=== PATIENT | female | born 2000 | race Caucasian/White ===

== ENCOUNTER 2021-11-26 17:43 | Emergency (ER) | payer BC, SELFPAY ==
--- NOTE | ~2021-11-26 | CT_ITS ---
EXAMINATION: CT abdomen pelvis wo con DATE: 11/26/2021 21:29 INDICATION: left flank pain TECHNIQUE: Computed tomography (CT) of the abdomen and pelvis was performed without intravenous contr ast. Automated exposure control and iterative reconstruction technique were employed. The dose-length product was 269.91 mGy-cm. COMPARISON: None. FINDINGS: Lower thorax: Unremarkable Liver: Normal. Biliary/Gallbladder: Gallbladder is normal. No bile duct dilation. Pancreas: No mass or duct dilation. Spleen: Normal. Adrenals:No mass. Kidneys: Left perinephric stranding and mild hydronephrosis. GI tract: No small or large bowel dilation. Normal appendix. Mesentery/Peritoneum: No ascites, mass, or free air. Retroperitoneum: No mass. Pelvis: The distal ureters could not be traced definitively due to the paucity of intra-abdominal fat and obscuration by adjacent bowel and pelvic vessels. Numerous pelvic calcifications are present in the potential pathway of the distal left ureter. Pelvic organs otherwise normal. Soft Tissues: Soft tissues and body wall unremarkable. Bones: No acute osseous finding. IMPRESSION: Distal left ureter not visualized, several possible distal ureteral calcifications are present in the pelvis. Mild left hydronephrosis and renal inflammatory change may represent obstructive uropathy, n oting that pyelonephritis could appear similar. CT urography would be necessary if further imaging de lineation as clinically necessary. Reviewed, dictated and finalized at location [facility]. IMPRESSION: Distal left ureter not visualized, several possible distal ureteral calcificati ons are present in the pelvis. Mild left hydronephrosis and renal inflammatory change may represent obstructive uropathy, noting that pyelonephritis could yu ear similar. CT urography would be necessary if further imaging delineation as clinically necessary.
[2021-11-26 18:14] VITALS: BP 113/91; PULSE 86; RESP 16; TEMP 36.2; O2SAT 100
[2021-11-26 18:53] LABS: Appearance Urine Slightly Cloudy (Clear); Basophils Absolute Auto 0.1 K/mm3 (0.0-0.1); Basophils Percent Auto 0.8 % (0.2-1.2); Bilirubin Urine Negative (Negative); Blood Urine 3+ (Negative); Color Urine Yellow (Yellow); Eosinophils Percent Auto 0.4 % (0-4.4); Glucose Urine UA Negative (Negative); Hematocrit 37.8 % (37.0-47.0); Hemoglobin 12.4 g/dL (12.0-15.0); Immature Granulocyte Absolute 0.04 K/mm3 (0.00-0.031); Immature Granulocyte Percent A 0.4 % (0-0.5); Ketones Urine 2+ mg/dL (Negative); Leukocyte Esterase Ur Negative LEU/UL (Negative); Lymphocytes Absolute Auto 1.45 K/mm3 (0.9-3.2); Lymphocytes Percent Auto 13.7 % (18.3-44.2); Mean Corpuscular HGB Conc 32.8 g/dl (32-36); Mean Corpuscular Hemoglobin 29.2 pg (26-34); Mean Corpuscular Volume 89.2 fl (80-100); Mean Platelet Volume 11.3 fl (7.4-10.4); Monocytes Absolute Auto 0.6 K/mm3 (0.1-0.6); Neutrophils Absolute Auto 8.3 K/mm3 (1.3-6.7); Neutrophils Percent Auto 78.7 % (45.5-73.1); Nitrate Urine Negative (Negative); Platelet Count Result 211 k/mm3 (150-375); Protein Urine 1+ mg/dL (Negative); Red Blood Count 4.24 M/mm3 (4.2-5.4); Red Cell Distribution Width 12.8 % (11.5-14.5); Specific Grav Ur 1.025 (1.001-1.035); Urobilinogen Urine 0.2 mg/dL (<2.0); White Blood Count 10.6 K/mm3 (4.5-10.0); pH Urine 8.5 (5.0-9.0)
[2021-11-26 19:05] LABS: Alanine Aminotransferase 18 U/L (6-35); Albumin Level 5.1 g/dL (3.5-5.1); Alkaline Phosphatase 52 U/L (38-126); Anion Gap 5 mmol/L (8-16); Aspartate Amino Transferase 27 U/L (14-36); Bilirubin,Total 0.4 mg/dL (0.2-1.3); Blood Urea Nitrogen 14 mg/dL (7-17); Calcium 9.4 mg/dL (8.4-10.2); Carbon Dioxide 25 mmol/L (22-30); Chloride 105 mmol/L (98-107); Estimated CRCL calculation 60 ml/min; Estimated Glomerular Filt Rate 52; Glucose 120 mg/dL (65-110); Lipase 125 U/L (23-300); Mucus Urine Few /lpf; Potassium 3.6 mmol/L (3.4-5.0); RBC Urine >75 /hpf (0-2); Sodium 135 mmol/L (137-145); Squamous Epithelial Cell Urine Occasional /hpf (Few)
[2021-11-26 19:10] LABS: Add Urine Microscopic? YES
--- NOTE | 2021-11-26 19:32 | ED.GENADULT ---
HPI - General Adult General Chief complaint: Abdominal Pain Stated complaint: left flank abdominal pain with n/v Time Seen by Provider: 11/26/21 19:17 History of Present Illness HPI narrative: Patient is a 21-year-old female who presents to the emergency department with chief complaint of left flank pain. The patient reports that around 430 she suddenly started having pain that was sharp and in the left flank area. Patient states it radiates to the front of her abdomen patient reports he is unable to get comfortable in any position reports has had multiple episodes of nausea and vomiting. Patient reports that she had no fever no chills reports that she had no trauma. Patient denies significant past medical history Related Data Allergies Allergy/AdvReac Type Severity Reaction Status Date / Time No Known Allergies Allergy Verified 11/26/21 17:44 Review of Systems Review of Systems: A 10 system review of systems was completed on the patient and is negative except for what is stated in the HPI. Nursing and ancillary documentation was reviewed. Exam Narrative: GENERAL: Well-appearing, well-nourished, and in moderate pain distress. HEAD: Normocephalic, atraumatic. EYES: PERRLA and EOMI. ENT: Nares clear, no rhinorrhea or epistaxis. Mucous membranes moist. NECK: Supple. CHEST: Clear to auscultation. No respiratory distress. HEART: Regular rate and rhythm. No murmur heard. Normal peripheral pulses. ABDOMEN: Soft, nontender, nondistended, normal active bowel sounds. EXTREMITIES: Normal range of motion. No edema. SKIN: Warm, dry, no rash. NEURO: No focal deficits. Alert and oriented x3. PSYCH: Normal mood and affect. Course Vital Signs Vital signs: Vital Signs Temperature 36.2 C L 11/26/21 18:14 Pulse Rate 86 11/26/21 18:14 Respiratory Rate 16 11/26/21 18:14 Blood Pressure 113/91 H 11/26/21 18:14 Pulse Oximetry 100 11/26/21 18:14 Oxygen Delivery Room Air 11/26/21 18:14 Temperature 36.2 C L 11/26/21 18:14 Pulse Rate 86 11/26/21 18:14 Respiratory Rate 16 11/26/21 18:14 Blood Pressure 113/91 H 11/26/21 18:14 Pulse Oximetry 100 11/26/21 18:14 Oxygen Delivery Room Air 11/26/21 18:14 Medical Decision Making Vital Signs Vital Signs: Vital Signs Temperature 36.2 C L 11/26/21 18:14 Pulse Rate 86 11/26/21 18:14 Respiratory Rate 16 11/26/21 18:14 Blood Pressure 113/91 H 11/26/21 18:14 Pulse Oximetry 100 11/26/21 18:14 Oxygen Delivery Room Air 11/26/21 18:14 Temperature 36.2 C L 11/26/21 18:14 Pulse Rate 86 11/26/21 18:14 Respiratory Rate 16 11/26/21 18:14 Blood Pressure 113/91 H 11/26/21 18:14 Pulse Oximetry 100 11/26/21 18:14 Oxygen Delivery Room Air 11/26/21 18:14 Lab Data Result diagrams: 11/26/21 18:43 11/26/21 18:43 Labs: Lab Results 11/26/21 11/26/21 11/26/21 Range/Units 18:40 18:43 18:43 WBC 10.6 H (4.5-10.0) K/mm3 RBC 4.24 (4.2-5.4) M/mm3 Hgb 12.4 (12.0-15.0) g/dL Hct 37.8 (37.0-47.0) % MCV 89.2 (80-100) fl MCH 29.2 (26-34) pg MCHC 32.8 (32-36) g/dl RDW 12.8 (11.5-14.5) % Plt Count 211 (150-375) k/mm3 MPV 11.3 H (7.4-10.4) fl Immature Gran % (Auto) 0.4 (0-0.5) % Neut % (Auto) 78.7 H (45.5-73.1) % Lymph % (Auto) 13.7 L (18.3-44.2) % Wilson % (Auto) 6.0 (2.6-8.5) % Eos % (Auto) 0.4 (0-4.4) % Baso % (Auto) 0.8 (0.2-1.2) % Lymph # (Auto) 1.45 (0.9-3.2) K/mm3 Wilson # (Auto) 0.6 (0.1-0.6) K/mm3 Eos # (Auto) 0.0 (0-0.3) K/mm3 Baso # (Auto) 0.1 (0.0-0.1) K/mm3 Abs Immat Gran (auto) 0.04 H (0.00-0.031) K/mm3 Absolute Neuts (auto) 8.3 H (1.3-6.7) K/mm3 Absolute Nucleated RBC 0.0 (0.0-0.012) K/mm3 Nucleated RBC % 0.0 (0.0-0.2) % Sodium (137-145) mmol/L Potassium (3.4-5.0) mmol/L Chloride (98-107) mmol/L Carbon Dioxide (22-30) mmol/L Anion Gap (8-16)
[2021-11-26] MEDS: ONDANSETRON INJ 4 MG/2 ML VIAL IV PUSH ×2 (20:03→23:17)
[2021-11-26] MEDS: MORPHINE SULFATE (*CRX) 4 MG/ML INJ IV PUSH (20:03)
[2021-11-26] MEDS: SODIUM CHLORIDE 0.9% IV 1,000 ML 999 ML IV CONT (20:04)
[2021-11-26] MEDS: HYDROmorphone HCL INJ (*CRX) 1 MG/ML SYR IV PUSH (20:41)
[2021-11-26 21:20] LABS: Pregnancy On Board Control Positive; Urine Pregnancy Test Negative
[2021-11-26] MEDS: CEPHALEXIN 500 MG CAPSULE PO (23:17)
[2021-11-26] MEDS: HYDROmorphone HCL INJ (*CRX) 1 MG/ML SYR 0.5 MG IV PUSH (23:18)
== END 2021-11-26 23:42 | disposition home or self-care (01) ==
PROVIDERS: Physician Assistant; Emergency Provider Emergency Medicine
DX: N13.2 Hydronephrosis with renal and ureteral calculous obstruction (principal)
CPT/HCPCS: 36415; 74176; 80053; 81001; 81025; 83690; 85025; 87086; 87088; 96361; 96374; 96375; 96376; 99284; A9270; J1170; J2270; J2405; J7030